=== PATIENT | female | born 1985 | race Asian ===

== ENCOUNTER 2024-03-15 16:27 | Outpatient (CLI) | payer BC | END 2024-03-15 16:28 | disposition home or self-care (01) | LOC: CSHRAD 16:27 | PROVIDERS: ATTEND Nurse Practitioner Family | DX: R09.A2 Foreign body sensation, throat (principal) | CPT/HCPCS: 70360 ==

== ENCOUNTER 2024-04-10 14:05 | Outpatient (CLI) | payer BC | END 2024-04-10 14:06 | disposition home or self-care (01) | LOC: CSHULT 14:05 | PROVIDERS: ATTEND Student in an Organized Health Care Education/Training Program | DX: R09.A2 Foreign body sensation, throat (principal) | CPT/HCPCS: 76999 ==